=== PATIENT | male | born 1970 | race Caucasian/White ===

== ENCOUNTER 2017-02-21 20:30 | Emergency (ER) | payer OTHER, MEDICARE | END 2017-02-21 22:58 | disposition home or self-care (01) | LOC: ER 20:30 | PROC: 0CQ7XZZ Repair Tongue, External Approach (ICD-10-PCS; principal; 2017-02-21) | DX: S01.512A Laceration without foreign body of oral cavity, initial encounter (principal); F31.9 Bipolar disorder, unspecified; X58.XXXA Exposure to other specified factors, initial encounter | CPT/HCPCS: 90471; 90714; 99282; A9270-GY ==